=== PATIENT | male | born 1955 | race Caucasian/White ===

== ENCOUNTER 2019-05-14 12:08 | Outpatient (CLI) | payer MEDICAID, SELFPAY ==
[2019-05-14] VITALS (9 sets, daily range): BP systolic 99–112; BP diastolic 51–63; PULSE 76–83; RESP 16–18; TEMP 36.6–36.9; O2SAT 97–99; BMI 22.8
--- NOTE | 2019-05-14 17:50 | NURSING ---
REPORT CALLED TO [facility] ON [facility]. PT AWARE OF TRANSFER TO [facility] FOR COMPLETION OF TREATMENT DUE TO THIS AREA CLOSING FOR THE DAY. PT TRANSPORTED UP VIA WHEELCHAIR, ACCOMPANIED BY THIS RN AND PT'S GIRLFRIEND AT SIDE.
--- NOTE | 2019-05-14 18:08 | NURSING ---
PT IN BED, WATCHING TV, CALL LIGHT IN HAND. GIRLFRIEND AT BEDSIDE.
--- NOTE | 2019-05-19 13:10 | ED.RN ---
PATIENT'S DAUGHTER- HARJIT MODI- [phone]- LEGAL NEXT OF KIN
== END 2019-05-14 20:20 | disposition home or self-care (01) ==
LOC: MEDOUTP 15:07 → MS2 18:00 → MEDOUTP 18:01 → MS2 18:54
PROVIDERS: Family Provider Nurse Practitioner Family; PCP Nurse Practitioner Family; Referring Provider Internal Medicine Hematology & Oncology; Visit Provider Internal Medicine Hematology & Oncology
DX: Z51.89 Encounter for other specified aftercare (principal); C34.90 Malignant neoplasm of unspecified part of unspecified bronchus or lung; D64.81 Anemia due to antineoplastic chemotherapy
CPT/HCPCS: 36415; 36430; 86850; 86900; 86901; 86920; 86922; J7040; P9016; A4216

== ENCOUNTER 2019-05-19 11:18 | Emergency (ER) | payer MEDICAID, SELFPAY ==
[2019-05-14 15:09] VITALS: BMI 22.8
[2019-05-19 11:21] VITALS: O2SAT 85
--- NOTE | 2019-05-19 11:33 | CPS ---
PATIENT HAD IGEL PLACED PRIOR TO ARRIVAL NO INTUBATION
--- NOTE | 2019-05-19 11:38 | ED.DCSUM_ITS ---
History of Present Illness Chief Complaint: CPR Informant: Coal Equipment Operator Onset: Today Maximum Severity: Severe Narrative: Patient is brought in by EMS under CPR circumstances they were called to the home where apparently he collapsed, began passing blood from his mouth on arrival of EMS he was unresponsive he obviously had either vomited or coughed up quite a bit of blood per EMS he underwent ACLS protocol he was intubated and IO was started he was given IV fluids CPR ACLS protocol, he had a prehospital downtime of about 30 minutes he went into PEA did not have a pulse or perfusing rhythm To the emergency department he was in asystole we continued ACLS, second IO was started he received IV fluid boluses ACLS medications and protocol was followed, he had breath sounds more on the right than the left, he had what appeared to be a chest tube in the right chest paramedics indicate he had some type of procedure recently at an unspecified hospital for lung cancer and he was sent home Past Medical History Primary Care Physician: Felton Mann MD [Primary Care Provider] - Past Medical History: - - Lung cancer unspecified right chest procedure with chest tube Review of Systems ROS: Unable to Obtain Physical Exam General: - - The patient's physical exam shows there is an ET tube type device in his mouth it is actively producing blood he has a right chest tube he has breath sounds more on the right than the left, the abdomen is very soft he is unresponsive he has no vital signs he has no pulses undergoing CPR he is a cachectic appearing Diagnostic/Tx/Re-eval - Medical Decision Making This time patient is undergone ACLS protocol CPR for almost 45 minutes he has never retained a spontaneous rhythm with pulse his cardiac echo done after ED treatment showed asystole with no cardiac activity he received additional rounds of ACLS and remained unresponsive to that his last rhythm was asystole and at that time he was failed to respond to therapy and treatment in the resuscitation was stopped he was declared at 1125am, when family is here we will discuss with them Final impression cardiopulmonary arrest did not respond to therapy, hemoptysis, reported history for lung cancer ED Disposition - Plan for ED Patient: Diagnosis: Cardiopulmonary arrest hemoptysis histor Referrals: Felton Mann MD [Primary Care Provider] -
--- NOTE | 2019-05-19 16:19 | ED.RN ---
[facility] CALLED AND RELEASED BODY.
[2019-05-19 16:22] VITALS: TEMP -17.7; TEMP 0
--- NOTE | 2019-05-19 16:22 | ED.RN ---
LARA RICHA [facility] MADE AWARE THAT PATIENT HAS BEEN RELEASED BY [facility].
== END 2019-05-19 16:10 ==
PROVIDERS: Emergency Provider Emergency Medicine
DX: I46.9 Cardiac arrest, cause unspecified (principal); R04.2 Hemoptysis; Z85.118 Personal history of other malignant neoplasm of bronchus and lung
CPT/HCPCS: 92950; 99281; 99291; J7030; A4216